=== PATIENT | female | born 1980 | race Asian ===

== ENCOUNTER 2024-08-26 04:27 | Emergency (ER) | payer BC ==
[2024-08-26] MEDS ORDERED: Sodium Chloride 0.9% 10 ML Syringe FLUSH PRN (05:07)
[2024-08-26] MEDS ORDERED: Naloxone 0.4 MG/ML SDV IVPUSH PRN (05:27)
[2024-08-26 05:29] LABS: A/G RATIO 0.8 (1-2); ALBUMIN 3.6 g/dl (3.4-5.0); ANION GAP 13.7 (5-15); BILIRUBIN TOTAL 0.6 mg/dL (0.2-1.0); BUN/CREATININE RATIO 21.3 (14-18); CALCIUM 8.9 mg/dL (8.5-10.1); CREATININE 0.8 mg/dL (0.55-1.02); EST CRCL DRUG DOSING (CG) 72.45 mL/min; MAGNESIUM 1.8 mg/dL (1.8-2.4); POTASSIUM,K 3.7 mEq/L (3.5-5.1); PROTEIN TOTAL,TP 8.1 g/dl (6.4-8.2)
[2024-08-26 05:34] LABS: LACTIC ACID 0.6 mmol/L (0.4-2.0)
[2024-08-26 05:45] LABS: BASOPHILS ABSOLUTE AUTO 0.1 K/mm3 (0.0-0.2); BASOPHILS PERCENT AUTO 0.4 % (0.0-1.0); EOSINOPHILS PERCENT AUTO 0.1 % (0.0-6.0); HEMATOCRIT 47.8 % (37.0-47.0); HEMOGLOBIN 15.9 gm/dl (12.0-16.0); IMMATURE GRAN ABSOLUTE AUTO 0.08 K/mm3 (0.00-0.05); IMMATURE GRAN PERCENT AUTO 0.5 % (0.0-0.4); LYMPHOCYTES ABSOLUTE AUTO 1.3 K/mm3 (1.0-4.8); LYMPHOCYTES PERCENT AUTO 8.2 % (24.0-44.0); MEAN CORPUSCULAR HEMOGLOBIN 30.5 pg (28.0-32.0); MEAN CORPUSCULAR HGB CONC 33.3 g/dl (32.0-36.0); MEAN CORPUSCULAR VOLUME 91.6 fl (83.0-99.0); MEAN PLATELET VOLUME 8.9 fl (9.4-12.3); MONOCYTES ABSOLUTE AUTO 0.5 K/mm3 (0.0-0.8); MONOCYTES PERCENT AUTO 2.8 % (0.0-8.0); NEUTROPHILS ABSOLUTE AUTO 14.2 K/mm3 (1.8-7.7); PLATELET COUNT,PLT 458 K/mm3 (150-400); RED BLOOD CELL COUNT 5.22 M/mm3 (4.10-5.30); WHITE BLOOD CELL COUNT,WBC 16.15 K/mm3 (3.9-11.3)
[2024-08-26] MEDS: Sodium Chloride 0.9% 1,000 ML IV ONE (06:19)
[2024-08-26] MEDS: Morphine 4 MG/ML Syringe IVPUSH ONE (06:20)
[2024-08-26 06:37] LABS: APPEARANCE,URINE CLOUDY (Clear); BILIRUBIN,URINE 1+ (Negative); COLOR,URINE YELLOW (Yellow); GLUCOSE,URINE NEGATIVE (Negative); KETONES,URINE 1+ (Negative); LEUKOCYTE ESTERASE,URINE NEGATIVE (Negative); NITRITE,URINE NEGATIVE (Negative); OCCULT BLOOD,URINE 2+ (Negative); PH,URINE 5.5 (5.0-8.0); PROTEIN,URINE 1+ (Negative); UROBILINOGEN,URINE 0.2 (0.2-1.0)
[2024-08-26] MEDS: Sodium Chloride 0.9% 10 ML Syringe FLUSH PRN (06:42)
[2024-08-26] MEDS: Iopamidol 612 MG/ML 100 ML Bottle IVPUSH ONE (06:42)
[2024-08-26 07:16] LABS: AMORPHOUS SEDIMENT,URINE MANY /hpf (NOT SEEN); BACTERIA,URINE MODERATE /hpf (FEW); MUCUS,URINE FEW /hpf (FEW); SQUAMOUS EPITHELIAL CELLS,UR 0-5 /hpf (0-5); WBC,URINE 0-5 /hpf (0-5)
== END 2024-08-26 08:20 | disposition home or self-care (01) ==
LOC: JD.ED 04:27
DX: E86.0 Dehydration (principal); Z91.048 Other nonmedicinal substance allergy status; Z91.09 Other allergy status, other than to drugs and biological substances; Z79.899 Other long term (current) drug therapy
CPT/HCPCS: 36415; 74177; 80053; 81001; 83605; 83690; 83735; 84703; 85025; 96361; 96374; 99284; J2270; J7030; Q9967; 99283

== ENCOUNTER 2024-12-01 07:01 | Day surgery (SDC) | payer BC, MEDICAID ==
[~2024-12-01 07:01] MED LIST: Sodium Chloride 0.9% 10 ML Syringe FLUSH PRN; Sodium Chloride 0.9% 10 ML Syringe FLUSH SCH
[2024-12-01] MEDS ORDERED: Propofol 200 MG/20 ML SDV ONE ×2 (07:14→08:02)
[2024-12-01] MEDS ORDERED: Phenylephrine 1% 10 MG/ML SDV ONE (07:22)
[2024-12-01] MEDS: Lactated Ringers 1,000 ML IV SCH (07:25)
[2024-12-01] MEDS ORDERED: Glycopyrrolate 0.2 MG/ML 2 ML SDV ONE (07:25)
[2024-12-01 07:31] LABS: BARBITURATE SCREEN,URINE NEGATIVE (CUTOFF=200); BENZODIAZEPINES SCREEN,URINE NEGATIVE (CUTOFF=150); BUPRENORPHINE SCREEN,URINE NEGATIVE (CUTOFF=10); METHADONE SCREEN, URINE NEGATIVE (CUTOFF=200); METHAMPHETAMINES SCREEN, URINE NEGATIVE (CUTOFF=500); OXYCODONE SCREEN,URINE NEGATIVE (CUT0FF=100); THC SCREEN,URINE 20 NG/ML NEGATIVE (CUTOFF=50)
[2024-12-01 07:32] LABS: AMPHETAMINES SCREEN, URINE NEGATIVE (CUTOFF=500)
== END 2024-12-01 09:12 | disposition home or self-care (01) ==
LOC: JD.SDS 07:01
PROVIDERS: ATTEND Surgery
DX: K64.1 Second degree hemorrhoids (principal); J45.909 Unspecified asthma, uncomplicated; E78.00 Pure hypercholesterolemia, unspecified; F32.A Depression, unspecified; Z79.899 Other long term (current) drug therapy; Z91.048 Other nonmedicinal substance allergy status
CPT/HCPCS: 45378; 80306; J2704; J7120; J1596; J2371

== ENCOUNTER 2025-01-14 14:43 | Emergency (ER) | payer MEDICAID ==
[2025-01-14] MEDS: Ondansetron 4 MG Tab.DIS PO ONE (15:13)
[2025-01-14] MEDS: cefTRIAXone 1 GM, Lidocaine 1% 2.1 ML IM STA (15:14)
== END 2025-01-14 15:23 | disposition home or self-care (01) ==
LOC: JD.ED 14:43
DX: L03.116 Cellulitis of left lower limb (principal); Z79.899 Other long term (current) drug therapy; Z91.048 Other nonmedicinal substance allergy status; Z91.09 Other allergy status, other than to drugs and biological substances
CPT/HCPCS: 96372; 99283; A9270; J0696; J2003

== ENCOUNTER 2025-02-07 07:25 | Day surgery (SDC) | payer BC, MEDICAID ==
[~2025-02-07 07:25] MED LIST changes: +fentaNYL 100 MCG/2 ML SDV IVPUSH PRN; +propofoL 1,000 MG/100 ML 100 ML ONE
[2025-02-07] MEDS ORDERED: Glycopyrrolate 0.2 MG/ML 2 ML SDV ONE (07:26)
[2025-02-07] MEDS ORDERED: Esmolol 100 MG/10 ML SDV ONE (07:26)
[2025-02-07] MEDS ORDERED: Ondansetron 4 MG/2 ML SDV ONE (07:26)
[2025-02-07] MEDS ORDERED: Dexamethasone 4 MG/ML 5 ML MDV ONE (07:26)
[2025-02-07] MEDS ORDERED: Midazolam 1 MG/ML 2 ML SDV ONE (07:30)
[2025-02-07] MEDS ORDERED: fentaNYL 100 MCG/2 ML SDV ONE (07:30)
[2025-02-07] MEDS ORDERED: Ketamine HCL/NACL, ISO-OSM 50 MG/5 ML Syringe ONE (07:38)
[2025-02-07] MEDS ORDERED: Lactated Ringers 1,000 ML ONE (07:39)
[2025-02-07] MEDS: Lactated Ringers 1,000 ML IV SCH (08:10)
[2025-02-07 08:32] LABS: APPEARANCE,URINE CLEAR (Clear); GLUCOSE,URINE NEGATIVE (Negative); OCCULT BLOOD,URINE 2+ (Negative)
[2025-02-07 08:43] LABS: BASOPHILS ABSOLUTE AUTO 0.1 K/mm3 (0.0-0.2); BASOPHILS PERCENT AUTO 1.1 % (0.0-1.0); EOSINOPHILS ABSOLUTE AUTO 0.0 K/mm3 (0.0-0.4); EOSINOPHILS PERCENT AUTO 0.8 % (0.0-6.0); IMMATURE GRAN ABSOLUTE AUTO 0.01 K/mm3 (0.00-0.05); IMMATURE GRAN PERCENT AUTO 0.2 % (0.0-0.4); LYMPHOCYTES ABSOLUTE AUTO 1.6 K/mm3 (1.0-4.8); LYMPHOCYTES PERCENT AUTO 30.2 % (24.0-44.0); MEAN PLATELET VOLUME 8.8 fl (9.4-12.3); MONOCYTES ABSOLUTE AUTO 0.3 K/mm3 (0.0-0.8); MONOCYTES PERCENT AUTO 5.3 % (0.0-8.0); NEUTROPHILS ABSOLUTE AUTO 3.3 K/mm3 (1.8-7.7); NEUTROPHILS PERCENT AUTO 62.4 % (41.0-71.0); NRBC ABSOLUTE 0.00 (0.00-0.02); NRBC PERCENT 0.0 % (0.0-0.2); PLATELET COUNT,PLT 456 K/mm3 (150-400); RED BLOOD CELL COUNT 4.74 M/mm3 (4.10-5.30); WHITE BLOOD CELL COUNT,WBC 5.27 K/mm3 (3.9-11.3)
[2025-02-07 08:58] LABS: BLOOD UREA NITROGEN,BUN 15.0 mg/dL (7-18); CARBON DIOXIDE,CO2 26.0 mEq/L (21-32); CHLORIDE,CL 105.0 mEq/L (98-107); CREATININE 0.7 mg/dL (0.55-1.02); EST CRCL DRUG DOSING (CG) 79.0 mL/min; ESTIMATED GFR 111.0 mL/min (>60); GLUCOSE RANDOM 100.0 mg/dL (70-99); POTASSIUM,K 4.3 mEq/L (3.5-5.1); SODIUM,NA 137.0 mEq/L (136-145)
[2025-02-07 09:23] LABS: SQUAMOUS EPITHELIAL CELLS,UR 0-5 /hpf (0-5)
[2025-02-07] MEDS: EPINEPHrine 1 MG/ML SDV ONE (09:59)
[2025-02-07] MEDS ORDERED: Ropivacaine 0.5% 5 MG/ML 30 ML SDV ONE (10:14)
[2025-02-07] MEDS ORDERED: Propofol 200 MG/20 ML SDV ONE (10:37)
[2025-02-07] MEDS ORDERED: dexmedeTOMIDine HCl 200 MCG/2 ML SDV ONE (10:46)
[2025-02-07] MEDS: Ondansetron 4 MG/2 ML SDV IVPUSH PRN (13:57)
== END 2025-02-07 14:17 | disposition home or self-care (01) ==
LOC: JD.SDS 07:25
PROVIDERS: ATTEND Obstetrics & Gynecology
DX: N83.6 Hematosalpinx (principal); N73.6 Female pelvic peritoneal adhesions (postinfective); F17.200 Nicotine dependence, unspecified, uncomplicated; Z88.8 Allergy status to other drugs, medicaments and biological substances; Z91.09 Other allergy status, other than to drugs and biological substances; Z79.899 Other long term (current) drug therapy
CPT/HCPCS: 36415; 58552; 64488; 80048; 81001; 81025; 85025; 86850; 86900; 86901; J0665; J0690; J1100; J1596; J1805; J2003; J2250; J2405; J2704; J2795; J3010; J7120; J7620; 00944; A9270-GY; J1171; J3490